=== PATIENT | female | born 1965 ===

== ENCOUNTER → 2017-09-30 | Outpatient (CLI) | payer OTHER ==
[2017-10-01 12:03] LABS: HPV Genotype 16 Not Detected (NOTDET); HPV Genotype 18 Not Detected (NOTDET)
[2017-10-07 14:47] LABS: HPV High Risk Other Not Detected (NOTDET)
== END ==
LOC: LAB 09:33 → LAB SHORT 09:33
PROVIDERS: Obstetrics & Gynecology
DX: Z01.419 Encounter for gynecological examination (general) (routine) without abnormal findings (principal)
CPT/HCPCS: 87624; G0123

== ENCOUNTER 2019-05-27 10:34 | Day surgery (SDC) | payer OTHER ==
[~2019-05-27] VITALS: Ht 177.8 cm; Wt 79.9 kg
[~2019-05-27 10:34] MED LIST: Allegra-D 24 H1 EACH PO; Flonase 0.05% N16 GM; Oyster Shell C500 MG; PROAIR RESPICL90 MCG; SUDAFED PO; VITAMIN C 500500 MG PO; VITAMIN D22000 UNIT PO; Vitamin B-1250 MCG
--- NOTE | 2019-05-27 12:49 | NUR ---
05/27/19 1249 Marlena Dailey 600CC NACL FLUID DEFICIT FROM HYSTEROSCPY. SURGEON AND ANESTHESIA AWARE.
== END 2019-05-27 13:43 | disposition home or self-care (01) ==
LOC: ORSCSDS 10:34
PROVIDERS: Obstetrics & Gynecology
PROC: 0UB98ZZ Excision of Uterus, Via Natural or Artificial Opening Endoscopic (ICD-10-PCS; principal; 2019-05-27 12:00)
DX: N92.1 Excessive and frequent menstruation with irregular cycle (principal); N25.0 Renal osteodystrophy; D25.9 Leiomyoma of uterus, unspecified; N84.0 Polyp of corpus uteri
CPT/HCPCS: 88305; J1100; J1885; J2250; J2405; J2704; J3010

== ENCOUNTER → 2021-12-25 | Outpatient (CLI) | payer OTHER ==
[2021-12-26 13:09] LABS: HPV 16 Negative (Negative); HPV 18 Negative (Negative); HPV OTHER HR TYPES Negative (Negative)
== END | disposition home or self-care (01) ==
LOC: LAB SHORT 10:26 → LAB 10:26
PROVIDERS: Advanced Practice Midwife
DX: Z01.419 Encounter for gynecological examination (general) (routine) without abnormal findings (principal)
CPT/HCPCS: 87624; G0123